=== PATIENT | female | born 1960 | race Caucasian/White ===

== ENCOUNTER → 2023-04-23 08:32 | Outpatient (BNVA) | payer SELFPAY | PROVIDERS: Family Provider Family Medicine; PCP Family Medicine; Visit Provider Family Medicine | DX: E78.5 Hyperlipidemia, unspecified (principal) | CPT/HCPCS: 80053; 80061 ==

== ENCOUNTER → 2024-04-28 07:45 | Outpatient (BNVA) | payer OTHER, SELFPAY | PROVIDERS: Family Provider Family Medicine; PCP Family Medicine; Visit Provider Family Medicine | DX: E78.5 Hyperlipidemia, unspecified (principal) | CPT/HCPCS: 80053; 80061 ==

== ENCOUNTER 2024-05-06 15:43 | Outpatient (CLI) | payer OTHER, SELFPAY ==
--- NOTE | 2024-05-06 16:00 | MM_ITS ---
WS: [id number] BILATERAL 3D TOMOSYNTHESIS DIGITAL SCREENING MAMMOGRAPHY WITH CAD CLINICAL INFORMATION: screening HISTORY: Screening mammogram. No current complaints. COMPARISON: 2018 TECHNIQUE: Bilateral CC and MLO views. FINDINGS: Scattered fibroglandular densities bilaterally. No suspicious focal mass, asymmetry, calcifications, or architectural distortion. No evidence of malignancy. Ovoid nodular density central RIGHT breast ap pears unchanged. MM/MM scr tomosynthesis 16374 IMPRESSION: DENSITY: There are scattered areas of fibroglandular density. BI-RADS: 2 - Benign. FOLLOW UP: 1 Year Follow-up Recommend return to annual screening mammography.
== END 2024-05-06 15:44 | disposition home or self-care (01) ==
LOC: RAD 15:43
PROVIDERS: Family Provider Family Medicine; PCP Family Medicine; Visit Provider Family Medicine
DX: Z12.31 Encounter for screening mammogram for malignant neoplasm of breast (principal); R92.323 Mammographic fibroglandular density, bilateral breasts; N63.41 Unspecified lump in right breast, subareolar
CPT/HCPCS: 77063; 77067

== ENCOUNTER 2024-07-07 08:46 | Day surgery (SDC) | payer OTHER, SELFPAY ==
--- NOTE | 2024-07-06 12:33 | ANES.PREANE2 ---
Pre-Anesthetic Assessment Height/Weight: Height 5 ft 6 in Preop Diagnosis: Screening colonoscopy Operation Date: 07/07/24 09:45 Proposed Procedures p Colonoscopy 67047, G0121, Z12.11(Not Applicable) - Bry Blum MD Was Beta Elaine taken within 24 hours: N/A Was Clonidine taken within 24 hours: N/A Social No alcohol and No tobacco Exam alert, oriented x 3, clear to auscultation bilaterally and regular rate & rhythm Airway Submandibular: within normal limits Cervical ROM: within normal limits Mallampati: Class II Dentition: full Comments: Comments: Teeth appear eroded, denies any loose Anesthetic Plan ASA status: 2 Anesthesia: MAC Other: No prior issues with anesthesia Completed bowel prep Takes trazodone nightly for sleep Denies any cardiac or pulmonary issues Labs from April reviewed and acceptable for procedure Plan for MAC anesthetic Medications/Allergies Home Medications ?Medication ?Instructions ?Recorded ?Confirmed ?Last Taken ?Type benzonatate 100 mg capsule 100 mg PO TID PRN cough #30 caps 05/31/22 07/03/24 07/05/24 18:00 Rx atorvastatin 10 mg tablet 10 mg PO DAILY #90 tabs 05/01/24 07/03/24 07/05/24 18:00 Rx trazodone 150 mg tablet 150 mg PO DAILY #30 tabs 05/01/24 07/03/24 07/05/24 18:00 Rx Allergies Allergy/AdvReac Type Severity Reaction Status Date / Time prochlorperazine (From Allergy seizures Verified 07/07/24 09:00 Compazine) [facility] Anesthesia Medical History Hx of diabetes mellitus Hyperlipidemia Family History Mother Hypoglycemia Father Diabetes Social History Smoking and tobacco/nicotine status: never used tobacco/nicotine Second hand smoke exposure: No Alcohol intake: never Substance/Drug Use: never Data Anesthesia Cardiac Studies: No Data to Display
[2024-07-07 09:09] VITALS: BP 117/70; PULSE 92; RESP 18; TEMP 36.4; O2SAT 97; BMI 21.9
[2024-07-07] MEDS: sodium chloride 0.9% 500 ML 15 ML IV (09:26)
--- NOTE | 2024-07-07 11:21 | W.PM.OPSUD ---
Surgery/Procedure H&P Update DATE OF PROCEDURE: July 07, 2024 DATE H&P PERFORMED: 06/09/24 H&P UPDATE INFORMATION: I have reviewed H&P completed within last 30 days, I have examined patient prior to procedure and No changes to prior documentation PREOP DIAGNOSIS: Screening colonoscopy PLANNED PROCEDURE: Operation Date: 07/07/24 09:45 Proposed Procedures p Colonoscopy 72726, G0121, Z12.11(Not Applicable) - Bry Blum MD
[2024-07-07 12:06] VITALS: BP 116/73; PULSE 97; RESP 18; TEMP 36.2; O2SAT 96
[2024-07-07 12:20] VITALS: BP 121/70; PULSE 86; RESP 18; O2SAT 99
[2024-07-07 12:32] VITALS: BP 132/63; PULSE 94; RESP 16; O2SAT 100
== END 2024-07-07 12:50 | disposition home or self-care (01) ==
PROVIDERS: PCP Family Medicine; Visit Provider Student in an Organized Health Care Education/Training Program
PROC: 0DJD8ZZ Inspection of Lower Intestinal Tract, Via Natural or Artificial Opening Endoscopic (ICD-10-PCS; CPT 45378; principal; 2024-07-07 09:45)
DX: Z12.11 Encounter for screening for malignant neoplasm of colon (principal); E78.5 Hyperlipidemia, unspecified; E11.9 Type 2 diabetes mellitus without complications; Z88.8 Allergy status to other drugs, medicaments and biological substances
CPT/HCPCS: 45378; J2704; J7040

== ENCOUNTER → 2025-04-20 08:18 | Outpatient (BNVA) | payer OTHER, SELFPAY | PROVIDERS: PCP Family Medicine; Visit Provider Family Medicine | DX: Z00.00 Encounter for general adult medical examination without abnormal findings (principal); E78.5 Hyperlipidemia, unspecified | CPT/HCPCS: 80053; 80061 ==

== ENCOUNTER 2025-05-07 14:12 | Outpatient (CLI) | payer OTHER, SELFPAY ==
--- NOTE | 2025-05-07 14:30 | XR_ITS ---
WS: [id number] DEXA (DUAL ENERGY X-RAY ABSORPTIOMETRY) Bone mineral density was performed using a Adly machine. HISTORY: screening COMPARISON: None available. Lumbar spine BMD (L1-L4): 1.083 g/cm2 T score: -0.8 Z score: 0.7 Total hip BMD: Left: 0.711 g/cm2. T score: -2.4 Z score: -1.2 Right: 0.668 g/cm2. T score: -2.7 Z score: -1.6 10 year probability of a major osteoporotic fracture is 26.6%. XR/XR DEXA axial skeleton* 97305 IMPRESSION: OSTEOPOROSIS based upon the WHO classification for females.
--- NOTE | 2025-05-07 15:00 | MM_ITS ---
WS: [id number] Bilateral screening 3D tomosynthesis digital mammogram, 05/07/2025 2:14 PM Clinical Data: screening Comparison: 05/06/2024, 11/12/2017, 11/12/2017, 01/05/2017, 06/05/2016, 05/08/2016, 02/27/2011. Findings: No spiculated masses or clustered calcifications are seen. There are no secondary signs of carcinoma. MM/MM scr BI tomosynthesis [id number] Impression: Negative bilateral mammogram unchanged. Recommend annual screening mammograms. BIRADS: 1 - Negative. FOLLOW UP: 1 Year Follow-up DENSITY: There are scattered areas of fibroglandular density. The CAD supervisor [employer] was used
== END 2025-05-07 14:13 | disposition home or self-care (01) ==
LOC: RAD 14:13
PROVIDERS: PCP Family Medicine; Visit Provider Family Medicine
DX: Z12.31 Encounter for screening mammogram for malignant neoplasm of breast (principal); Z13.820 Encounter for screening for osteoporosis; Z00.00 Encounter for general adult medical examination without abnormal findings
CPT/HCPCS: 77063; 77067; 77080